=== PATIENT | female | born 1965 | race Caucasian/White ===

== ENCOUNTER 2018-10-24 15:15 | Emergency (ER) | payer OTHER ==
[2018-10-24 15:33] VITALS: BP 128/71; PULSE 83; TEMP 98.8; BMI 25.6
[2018-10-24] MEDS ORDERED: IBUPROFEN 600 MG TABLET (FP) PO ONE ×2 (15:57→16:05)
--- NOTE | 2018-10-24 16:03 | PDOC ---
History of Present Illness - General Chief Complaint: Pain Stated Complaint: PAIN Time Seen by Provider: 10/24/18 15:29 History Source: Patient Exam Limitations: No Limitations Past History - Past Medical History Allergies/Adverse Reactions: Allergies Allergy/AdvReac Type Severity Reaction Status Date / Time No Known Allergies Allergy Verified 10/24/18 15:19 Home Medications: Ambulatory Orders Acetaminophen [Tylenol] 650 mg PO QID PRN 10/24/18 Multivitamin [Multiple Vitamins] 1 each PO DAILY 10/24/18 COPD: No - Surgical History Abdominal Surgery: Yes (ectopics, CESERAN) - Suicide/Smoking/Psychosocial Hx Smoking Status: No Smoking History: Never smoked Have you smoked in the past 12 months: No Number of Cigarettes Smoked Daily: 0 Hx Alcohol Use: No Drug/Substance Use Hx: No *Physical Exam - Vital Signs Last Vital Signs Temp Pulse Resp BP Pulse Ox 98.8 F 83 16 128/71 100 10/24/18 15:22 10/24/18 15:22 10/24/18 15:22 10/24/18 15:22 10/24/18 15:22 - Physical Exam General Appearance: No: Apparent Distress Neck: positive: Supple Musculoskeletal: positive: Normal Inspection, Other (negative Tinel's and Phalen 's sign). negative: Decreased Range of Motion, Muscle Spasm, Vertebral Tenderness Extremity: positive: Normal Capillary Refill, Normal Inspection, Normal Range of Motion. negative: Coldness, Swelling, Erythema Integumentary: positive: Normal Color. 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 negative: Numbness Moderate Sedation - Procedure Monitoring Vital Signs: Procedure Monitoring Vital Signs Temperature 98.8 F 10/24/18 15:22 Pulse Rate 83 10/24/18 15:22 Respiratory Rate 16 10/24/18 15:22 Blood Pressure 128/71 10/24/18 15:22 O2 Sat by Pulse Oximetry (%) 100 10/24/18 15:22 Medical Decision Making - Medical Decision Making 52 y/o F with no sig pmh presents with L wrist pain gradually progressing up to elbow, then along L lateral neck and now feeling to L upper back as well over the course of the past few months. Denies trauma. 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 Denies numbness/tingling/weakness of fingers, sob, cp, neck pain, headache. Could possibly be carpal tunnel? or tendonitis? Will refer to orthopedics 10/24/18 15:59 *DC/Admit/Observation/Transfer Diagnosis at time of Disposition: Left wrist pain - Discharge Dispostion Disposition: HOME Condition at time of disposition: Stable Decision to Admit order: No - Referrals Referrals: Tucker Wade MD [Primary Care Provider] - 2 Days Kavin Saleem DO [Staff Physician] - 2 Days - Patient Instructions Printed Discharge Instructions: DI for Tendinitis, DI for Wrist Pain, DI for Carpal Tunnel Syndrome Additional Instructions: Thank you for choosing [facility]. It was a pleasure taking care of you. You may take Motrin 600 mg every 4 hours by mouth as needed for mild to moderate pain. Take Motrin with food. You were referred to orthopedics for follow-up Try to avoid excessive typing as that may exacerbate your condition Recommend wearing a wrist support to help with your symptoms. Return to the Emergency Department if your symptoms worsen or persist or have other concerning symptoms. - Post Discharge Activity
== END 2018-10-24 16:12 | disposition home or self-care (01) ==
LOC: JERFT 15:15
DX: M25.532 Pain in left wrist (principal)
CPT/HCPCS: 99281-25

== ENCOUNTER 2019-01-04 09:26 | Emergency (ER) | payer OTHER ==
[2019-01-04 09:36] VITALS: BP 128/72; PULSE 78; TEMP 98.9; BMI 26.5
[2019-01-04 12:12] LABS: PH,URINE 5.5 (5.0-8.0); URINE APPEARANCE CLEAR; URINE BILIRUBIN NEGATIVE (NEGATIVE); URINE COLOR YELLOW; URINE GLUCOSE (UA) NEGATIVE (NEGATIVE); URINE KETONE NEGATIVE (NEGATIVE); URINE LEUK ESTERASE NEGATIVE (NEGATIVE); URINE NITRITE NEGATIVE (NEGATIVE); URINE PROTEIN NEGATIVE (NEGATIVE); URINE UROBILINOGEN 0.2 mg/dL (0.2-1.0)
[2019-01-04 12:15] LABS: HCG,QUALITATIVE URINE Negative
--- NOTE | 2019-01-04 12:35 | PDOC ---
History of Present Illness - General Chief Complaint: Edema Stated Complaint: LT EYE SWOLLEN/ NOSE PAIN Time Seen by Provider: 01/04/19 11:09 History Source: Patient Exam Limitations: No Limitations - History of Present Illness Initial Comments: 01/04/19 12:34 53 y/o female c/o of nasal congestion and difficulty breathing via nares x 4 days, now with sinus pressure , and lower eye swelling since this am. Pt denies headache, dizziness, nasal drainage, dental pain, ear pain, difficulty swallowing, neck pain, or fever. Timing/Duration: getting worse Severity: mild Associated Symptoms: reports: other Past History - Travel Traveled outside of the country in the last 30 days: No Close contact w/someone who was outside of country & ill: No - Past Medical History Allergies/Adverse Reactions: Allergies Allergy/AdvReac Type Severity Reaction Status Date / Time No Known Allergies Allergy Verified 01/04/19 09:36 Home Medications: Ambulatory Orders Acetaminophen [Tylenol] 650 mg PO QID PRN 10/24/18 Multivitamin [Multiple Vitamins] 1 each PO DAILY 10/24/18 COPD: No - Surgical History Abdominal Surgery: Yes (ectopics, CESERAN) - Suicide/Smoking/Psychosocial Hx Smoking Status: No Smoking History: Never smoked Have you smoked in the past 12 months: No Number of Cigarettes Smoked Daily: 0 Information on smoking cessation initiated: No Hx Alcohol Use: No Drug/Substance Use Hx: No Patient Lives Alone: No Lives with/in: spouse/SO Review of Systems - Review of Systems Able to Perform ROS?: No Is the patient limited Telugu proficient: No Constitutional: No: Symptoms Reported HEENTM: Yes: Nose Pain, Nose Congestion Respiratory: No: Symptoms reported ABD/GI: No: Symptoms Reported : No: Symptoms Reported Musculoskeletal: No: Symptoms Reported Integumentary: No: Symptoms Reported Neurological: No: Other Endocrine: No: Symptoms Reported Hematologic/Lymphatic: No: Symptoms Reported *Physical Exam - Vital Signs Last Vital Signs Temp Pulse Resp BP Pulse Ox 98.9 F 78 17 128/72 98 01/04/19 09:34 01/04/19 09:34 01/04/19 09:34 01/04/19 09:34 01/04/19 09:34 - Physical Exam General Appearance: Yes: Nourished, Appropriately Dressed. No: Apparent Distress HEENT: positive: EOMI, KAROL, TMs Normal, Pharynx Normal, Nasal Congestion ( edematous turbinates devora), Sinus Tenderness (max and frontal sinus tenderness) Neck: positive: Normal Thyroid, Supple. negative: Lymphadenopathy (R), Lymphadenopathy (L) Respiratory/Chest: positive: Lungs Clear, Normal Breath Sounds. negative: Respiratory Distress, Accessory Muscle Use Cardiovascular: positive: Regular Rhythm, Regular Rate. negative: Murmur Extremity: positive: Normal Capillary Refill Integumentary: positive: Normal Color, Warm, Moist, Swelling (noted devora upper cheek and lower eye area slighlty edematous) Neurologic: positive: Motor Strength 5/5 (ambulatory) ED Treatment Course - ADDITIONAL ORDERS Additional order review: Laboratory Results 01/04/19 11:55 Urine Color Yellow Urine Appearance Clear Urine pH 5.5 Ur Specific [place] 1.009 L Urine Protein Negative Urine Glucose (UA) Negative Urine Ketones Negative Urine Blood Negative Urine Nitrite Negative Urine Bilirubin Negative Urine Urobilinogen 0.2 Ur Leukocyte Esterase Negative Urine HCG, Qual Negative - RADIOLOGY Radiology Studies Ordered: Category Date Time Status FACIAL BONES CT W/O CONTRAST [CT] Stat CT Scan 01/04/19 11:43 Ordered Medical Decision Making - Medical Decision Making 01/04/19 12:42 CC: sinus tenderness. lower eye swelling, and nasal congestion, no fver Exam: + frontal and max sinus tenderness, w/ devora turbinate edeam/erythema + rhinorrhea Plan: upreg and facial ct 01/04/19 12:44 Laboratory Tests 01/04/19 11:55 Ur Specific [place] 1.009 L Urine Ketones Negative Urine Nitrite Negative Urine Bilirubin Negative Urine HCG, Qual Negative 01/04/19 14:37 CT shows minimal mucoperiosteal thickening in the ethmoid air cells and maxillary ostium. Pt will be discharged home with abx, nasal spray, and ENT f/ u. *DC/Admit/Observation/Transfer Diagnosis at time of Disposition: Sinusitis - Discharge Dispostion Disposition: HOME Condition at time of disposition: Good - Referrals Referrals: Tyson Potter MD [Staff Physician] - - Patient Instructions Printed Discharge Instructions: DI for Sinusitis Additional Instructions: Please take antibiotics as prescribed. Use nasal spray as prescribed. Follow up with referred physician - Post Discharge Activity
== END 2019-01-04 14:50 | disposition home or self-care (01) ==
LOC: JER 09:26
DX: J01.00 Acute maxillary sinusitis, unspecified (principal); J01.20 Acute ethmoidal sinusitis, unspecified
CPT/HCPCS: 70486-TC; 81003; 84703; 99281-25